=== PATIENT | male | born 1960 | race Hispanic/Latino ===

== ENCOUNTER 2018-09-02 19:23 | Emergency (ER) | payer OTHER ==
--- NOTE | 2018-09-02 20:00 | Event Note ---
ED Screening Note ED Screening Note: c/o low back pain describes it as a throbbing weight loss of 20-25 lbs in 3 months hx of back injury 3 months ago, had DDD on XR, no fracture no new injury states he had foul urine c/o chronic testicular pain, had a US of the scrotum at [place] which showed bilateral varicoceles, did not follow up with urology due to money issue PMHx of Hep C This initial assessment/diagnostic orders/clinical plan/treatment(s) is/are subject to change based on patients health status, clinical progression and re- assessment by fellow clinical providers in the ED. Further treatment and workup at subsequent clinical providers discretion. Patient/guardian urged not to elope from the ED as their condition may be serious if not clinically assessed and managed. Initial orders include: labs, UA
[2018-09-02 20:34] LABS: Bacteria,Urine 4+ /HPF (Negative); Bilirubin,Urine NEG (Negative); Blood,Urine LG (Negative); Color,Urine Yellow (Yellow); Mucus,Urine FEW /HPF; Urobilinogen,Urine < 2.0 mg/dL (<2.0)
[2018-09-02 20:51] LABS: Basophils % (Auto) 0.4 % (0.0-1.8); Eosinophils # (Auto) 0.3 K/mm3 (0.0-0.4); Eosinophils % (Auto) 3.7 % (0.0-4.3); Hematocrit 33.3 % (35.5-45.6); Hemoglobin 11.5 gm/dl (11.8-15.2); Lymphocytes # (Auto) 1.3 K/mm3 (1.2-5.4); Lymphocytes % (Auto) 15.9 % (13.4-35.0); Mean Corpuscular HGB Conc 35 % (32-34); Mean Corpuscular Volume 86 fl (84-94); Monocytes # (Auto) 0.9 K/mm3 (0.0-0.8); Monocytes % (Auto) 11.4 % (0.0-7.3); Platelet Count 117 K/mm3 (140-440); Red Blood Count 3.89 M/mm3 (3.65-5.03); Red Cell Distribution Width 14.5 % (13.2-15.2)
[2018-09-02 21:22] LABS: Alanine Aminotransferase 33 units/L (7-56); BUN/Creatinine Ratio 24; Blood Urea Nitrogen 22 mg/dL (9-20); Calcium 9.2 mg/dL (8.4-10.2); Hemolysis Index 1
[2018-09-02 21:38] LABS: Albumin 2.6 g/dL (3.9-5)
[2018-09-02] MEDS ORDERED: ROCEPHIN/NS 1 GM/50 ML 1 GM/50 ML BAG IV ONE (22:55)
--- NOTE | 2018-09-02 23:35 | Emergency Department Report ---
ED Back Pain/Injury HPI - General Chief Complaint: Back Pain/Injury Stated Complaint: PAIN IN BACK AND GROIN Time Seen by Provider: 09/02/18 19:55 Source: patient Limitations: No Limitations - History of Present Illness Initial Comments: 57-year-old male presents to ED with complaint of back pain and sciatica. Patient reports back injury 3 months ago after heavy lifting. Had xrays done at that time which showed DDD. Patient has seen a chiropractor, but states his pain has not improved. Has been taking ibuprofen and flexeril. She states pain is across his entire lower back and radiates into the left leg. Reports numbness and tingling in the left leg as well. States he has been ambulating with a cane since his injury. Patient states approximately one month ago, he had an episode of urinary incontinence. Patient states this resolved, but returned 4 days ago. Has not had any incontinence since 4 days ago. He denies any urinary retention or bowel incontinence. Patient also denies weakness in his lower exremities or saddle anesthesia. Patient and concerned he may possibly have a UTI also, due to foul smell and dark color. States was diagnosed with an enlarged prostate. reports weight loss and decreased appetite over the last few months, however, pt states that he has not had much of an appetite due to the stress of his back injury. MD Complaint: back pain -: month(s) (3) Radiation: left leg Severity: severe Quality: sharp Consistency: constant Improves With: immobilization Worsens With: movement, sitting upright, walking Context: while lifting Associated Symptoms: numbness (left leg), incontinence. denies: weakness, difficulty urinating, fever/chills Treatments Prior to Arrival: NSAIDS, prescription analgesics - Related Data Previous Rx's Medication Instructions Recorded Last Taken Type HYDROcodone/APAP 5-325 [[place]air 1 each PO Q6HR PRN #10 tablet 09/03/18 Unknown Rx 5/325] Sulfamethoxazole/Trimethoprim 1 each PO BID 5 Days #10 tablet 09/03/18 Unknown Rx [Bactrim DS TAB] predniSONE [Deltasone] 50 mg PO QDAY #5 tab 09/03/18 Unknown Rx Allergies Allergy/AdvReac Type Severity Reaction Status Date / Time ciprofloxacin [From Cipro] Allergy Unknown Verified 09/02/18 19:28 ED Review of Systems ROS: Stated complaint: PAIN IN BACK AND GROIN Other details as noted in HPI Comment: All other systems reviewed and negative Constitutional: denies: fever Genitourinary: testicular pain, other (reports urinary incontinence) Musculoskeletal: back pain Neurological: numbness, paresthesias. denies: weakness ED Past Medical Hx - Past Medical History Additional medical history: BACK INJURY - Social History Smoking Status: Never Smoker Substance Use Type: None - Medications Home Medications: Home Medications Medication Instructions Recorded Confirmed Last Taken Type HYDROcodone/APAP 5-325 [[place] 1 each PO Q6HR PRN #10 tablet 09/03/18 Unknown Rx 5/325] Sulfamethoxazole/Trimethoprim 1 each PO BID 5 Days #10 tablet 09/03/18 Unknown Rx [Bactrim DS TAB] predniSONE [Deltasone] 50 mg PO QDAY #5 tab 09/03/18 Unknown Rx ED Physical Exam - General Limitations: No Limitations General appearance: alert, in no apparent distress - Head Head exam: Present: atraumatic, normocephalic - Eye Eye exam: Present: normal appearance, PERRL, EOMI - ENT ENT exam: Present: mucous membranes moist - Neck Neck exam: Present: normal inspection - Respiratory Respiratory exam: Present: normal lung sounds bilaterally. Absent: respiratory distress - Cardiovascular Cardiovascular Exam: Present: regular rate, normal rhythm - GI/Abdominal GI/Abdominal exam: Present: soft. Absent: distended, tenderness - Rectal Rectal exam: Present: normal rectal tone - Extremities Exam Extremities exam: Present: normal inspection - Back Exam Back exam: Present: paraspinal tenderness (bilateral lower lumbosacral area), vertebral tenderness (lower lumbar approx L4,L5). Absent: CVA tenderness (R), CVA tenderness (L) - Neurological Exam Neurological exam: Present: alert, oriented X3, CN II-XII intact. Absent: motor sensory deficit (strength 5/5 BLE; able to lift bilateral legs up off of stretcher approx 12 inches w/o difficulty; sensation normal in BLE; no saddle anethesia present; normal rectal tone) - Psychiatric Psychiatric exam: Present: normal affect, normal mood - Skin Skin exam: Present: warm, dry, intact, normal color. Absent: rash ED Course Vital Signs 09/02/18 09/02/18 09/02/18 19:55 21:00 21:25 Temperature 98.3 F 98.3 F Pulse Rate 71 63 65 Respiratory 18 17 22 Rate Blood Pressure 116/45 127/59 Blood Pressure 127/59 [Left] O2 Sat by Pulse 95 98 98 Oximetry 09/02/18 09/02/18 09/02/18 21:32 22:00 22:31 Temperature Pulse Rate 64 80 89 Respiratory 15 17 13 Rate Blood Pressure 119/59 137/67 119/59 Blood Pressure [Left] O2 Sat by Pulse 97 97 96 Oximetry 09/02/18 23:00 Temperature Pulse Rate 94 H Respiratory 16 Rate Blood Pressure 141/68 Blood Pressure [Left] O2 Sat by Pulse 97 Oximetry - Consultations Consultation #1: 09/02/18 23:34 Spoke w/ neurodurgeon on-call at [place], Dr Acevedo. States obtain post-void r esidual. If over 200 cc, then needs transfer for MRI. If less than 200, not likely cauda equina. Incontinence in cauda equina due to overflow incontinence. 09/02/18 23:57 Post-void residual is 98 mL. ED Medical Decision Making - Lab Data Result diagrams: 09/02/18 20:16 09/02/18 20:16 - Medical Decision Making - 57 yo M with low back pain x 3 months - has been seen by chiropractor, only taking ibuprofen and muscle relaxer - states no improvement of pain - reports a few episodes of incontinence, last of which was 4 days ago - pt has no leg weakness, no decreased sensation on exam, no saddle anesthesia; rectal tone is normal - pt able to roll onto side during exam, lift both legs and resist with both legs - only concern for cauda equina is urinary incontinence - spoke w/ NSGY at [facility] and checked post-void residual which was 98 mL; therefore, pt ritu does not have cauda equina - pt does have UTI, rocephine given here in ED; pt afebrile, no elevation in EBCs, vitals normal - advised outpt f/u with ortho - return precautions given - rx given for norco - Differential Diagnosis cauda equina, chronic back pain, UTI Critical care attestation.: If time is entered above; I have spent that time in minutes in the direct care of this critically ill patient, excluding procedure time. ED Disposition Clinical Impression: UTI (urinary tract infection), Chronic back pain Disposition: DC- TO HOME OR SELFCARE Is pt being admited?: No Condition: Stable Instructions: Urinary Tract Infection in Men (ED), Chronic Back Pain (ED) Prescriptions: Sulfamethoxazole/Trimethoprim [Bactrim DS TAB] 1 each PO BID 5 Days #10 tablet predniSONE [Deltasone] 50 mg PO QDAY #5 tab HYDROcodone/APAP 5-325 [Adair 5/325] 1 each PO Q6HR PRN #10 tablet PRN Reason: Pain Referrals: TALI BURT MD [Staff Physician] - 3-5 Days
[2018-09-03] MEDS ORDERED: NORCO 5/325 PO ONE (00:12)
[2018-09-03 01:08] VITALS: BP 141/68
== END 2018-09-03 01:08 | disposition home or self-care (01) ==
LOC: ED 19:23
DX: N39.0 Urinary tract infection, site not specified (principal); M54.5 Low back pain; G89.29 Other chronic pain; Z88.1 Allergy status to other antibiotic agents; Z79.899 Other long term (current) drug therapy
CPT/HCPCS: 36415; 80053; 81001; 83690; 85025; 87086; 96365; 99283; J0696; 87076; 87186